=== PATIENT | female | born 1950 | race Caucasian/White ===

== ENCOUNTER 2018-08-31 13:11 | Emergency (ER) | payer OTHER ==
--- NOTE | 2018-08-31 13:53 | EDPHY ---
H & P Stated Complaint: Fall, Head Injury Time Seen by Provider: 08/31/18 13:45 HPI/ROS: CHIEF COMPLAINT: Hit head on ice HISTORY OF PRESENT ILLNESS: 68-year-old female in the ER via private vehicle with her . Patient has no history of anticoagulant use, does have a history of CVA, was walking down her driveway approximately noon today when she slipped on the ice fell backward impacting the occiput of her head. No loss of consciousness. Her notes that she was asking repetitive questions for approximately 30 min afterward which prompted seeking medical attention. This repetitive questioning has now stopped. No headache. No nausea or vomiting. No loss of consciousness. No amnesia. No alcohol or drug use. No gait instability. No midline C-spine pain. No peripheral paresthesia, weakness, numbness. This was a mechanical, non syncopal episode. REVIEW OF SYSTEMS: 10 systems reviewed and negative with the exception of the elements mentioned in the history of present illness PAST MEDICAL/SURGICAL HISTORY: no anticoagulant use, CVA history. SOCIAL HISTORY: denies alcohol use at time of incident. Lives with her . PHYSICAL EXAM 1) GENERAL: Well-developed, well-nourished, alert and oriented. Appears to be in no acute distress. Answering questions appropriately. 2) HEAD: Normocephalic, erythema to the occiput with tenderness with no laceration no abrasion no hematoma no depression 3) HEENT: Pupils equal, round, reactive to light bilaterally. Negative Horners. Nasopharynx, oropharynx, clear. No deformity or angulation of nose. No septal hematoma. No rhinorrhea. No oral trauma. Ears bilaterally with normal tympanic membranes. No hemotympanum. No fluid or blood in the external auditory canal. No raccoon eyes. No Beatty sign. Teeth are normally aligned with no gross malocclusion, TMJ bilaterally nontender, facial bones nontender including the zygomatic arch, maxilla mandible. 4) NECK: No cervical collar is on. Posterior cervical spine is nontender, no stepoff, no effusion. Full range of motion which does not elicit any midline cervical spine pain, no posterior midline tenderness, no step-off. 5) LUNGS: Clear to auscultation bilaterally, no wheezes, no rhonchi, no retractions. No obvious signs of trauma. No chest wall pain. No flaring, no grunting. Moving symmetrically. No crepitus. 6) HEART: [Regular rate and rhythm, 7) ABDOMEN: No guarding, no rebound, no focal tenderness, no peritoneal signs, no signs of trauma, no ecchymosis 8) MUSCULOSKELETAL: Moving all extremities, no focal areas of tenderness, no obvious trauma. 9) BACK: No midline vertebral tenderness, no fluctuance, no step-off, no obvious trauma, no visual or palpable abnormality. 10) SKIN: No laceration. No abrasion 11) NEURO: Awake, alert, and oriented to person, place and time. Answers questions appropriately. There were no obvious focal neurologic abnormalities. No cerebellar dysfunction. Cranial nerves 2 through to 12 intact. Normal steady gait. Upper and lower extremities bilaterally with strength 5 / 5, reflexes 2+. DIFFERENTIAL DIAGNOSIS: Not necessarily in any particular order, my differential diagnosis includes, but is not limited to, concussion, skull fracture, intraparenchymal contusion, subarachnoid, subdural and epidural hematoma. The patient understands that this diagnosis is provisional and can never be 100% accurate. - Personal History Current Tetanus Diphtheria and Acellular Pertussis (TDAP): Yes - Medical/Surgical History Hx Asthma: No Hx Chronic Respiratory Disease: No Hx Diabetes: No Hx Cardiac Disease: No Hx Renal Disease: No Hx Cirrhosis: No Hx Alcoholism: No Hx HIV/AIDS: No Hx Splenectomy or Spleen Trauma: No Other PMH: ford, migraines, fainting, d&c, garza's esophagus, fx cervical spine, - Social History Smoking Status: Never smoked Constitutional: Initial Vital Signs Temperature (C) 36.8 C 08/31/18 13:16 Heart Rate 95 08/31/18 13:16 Respiratory Rate 18 08/31/18 13:16 Blood Pressure 183/94 H 08/31/18 13:16 O2 Sat (%) 96 08/31/18 13:16 O2 Delivery Mode Room Air Allergies/Adverse Reactions: THA Inhibitors Allergy (Verified 08/31/18 13:15) drugs ending in pril Allergy (Intermediate, Uncoded 02/01/16 10:18) Home Medications: Medication Instructions Recorded Cyanocobalamin [Vitamin B12 (*)] 1,000 mcg PO DAILY 04/18/13 Multivitamins [Multivitamin (*)] 1 each PO DAILY 04/18/13 [place]-3 Fatty Acids [Fish Oil 1000 1,000 mg PO DAILY #0 02/01/16 mg (*)] Ascorbic Acid [Vitamin C 500 mg 500 mg PO DAILY 04/05/16 (*)] Aspirin [Aspirin 81mg (*)] 81 mg PO DAILY 04/05/16 Atorvastatin Calcium [Lipitor 10 10 mg PO DAILY@18 04/05/16 mg (*)] Cholecalciferol Vit D3 [Vitamin D3 1,000 units PO DAILY 04/05/16 (*)] Herbals/Supplements -Info Only 1 each PO DAILY 04/05/16 amLODIPine BESYLATE [Norvasc 5 mg 5 mg PO DAILY@18 04/05/16 (*)] Medical Decision Making - Diagnostics Imaging Results: Images reviewed myself ED Course/Re-evaluation: 1:50 p.m.: Head CT ordered in this patient for trauma for the following indication: Greater than 65 years old. No midline C-spine pain, answering questions appropriately. No neurologic deficits. Care of patient under supervision of secondary supervising physician Dr Swain with whom I discussed case. 3:00 p.m.: Re-evaluation. Patient observed ambulating in the ER. She is answering questions appropriately. notes no altered mentation, repetitive questioning. I discussed the negative imaging results. Plan at this time will be discharge home. The and patient feel comfortable being discharged. Given my usual and customary head injury precautions instructions. All questions and concerns addressed by myself. Departure - Departure Disposition: Home, Routine, Self-Care Clinical Impression: Fall from slipping on ice, Head injury Condition: Good Instructions: Head Injury (ED) Additional Instructions: ALTHOUGH THERE IS NO EVIDENCE OF SERIOUS HEAD INJURY AT THIS TIME, DELAYED SIGNS CAN APPEAR 24 TO 48 HOURS AFTER INJURY. PLEASE RETURN TO THE EMERGENCY DEPARTMENT (ED) IMMEDIATELY IF YOU HAVE INCREASED HEADACHE, PERSISTENT HEADACHE , VOMITING, WEAKNESS, CONFUSION OR VISUAL PROBLEMS. WE RECOMMEND THAT YOU DO NOT RESUME CONTACT SPORTS OR ACTIVITIES THAT TAKE COORDINATION OR BALANCE SUCH SKIING OR RIDING A BICYCLE UNTIL CLEARED TO DO SO BY YOUR DOCTOR OR BY A NEUROLOGIST. Referrals: REBECCA JOHNSON MD [Primary Care Provider] - 1-2 days without fail
[2018-08-31 15:13] VITALS: BP 152/78
== END 2018-08-31 15:11 | disposition home or self-care (01) ==
DX: S09.90XA Unspecified injury of head, initial encounter (principal); R40.2412 Glasgow coma scale score 13-15, at arrival to emergency department; W00.0XXA Fall on same level due to ice and snow, initial encounter; Y92.014 Private driveway to single-family (private) house as the place of occurrence of the external cause; G43.909 Migraine, unspecified, not intractable, without status migrainosus; K22.70 Barrett's esophagus without dysplasia; Z86.73 Personal history of transient ischemic attack (TIA), and cerebral infarction without residual deficits; Z98.1 Arthrodesis status